=== PATIENT | female | born 1950 | race Caucasian/White ===

== ENCOUNTER 2022-04-02 21:48 | Outpatient (CLI) | payer MEDICARE, SELFPAY | END 2022-04-02 21:49 | disposition home or self-care (01) | PROVIDERS: Visit Provider Family Medicine | DX: S09.90XA Unspecified injury of head, initial encounter (principal); S79.911A Unspecified injury of right hip, initial encounter; F10.129 Alcohol abuse with intoxication, unspecified; W18.30XA Fall on same level, unspecified, initial encounter; Y92.009 Unspecified place in unspecified non-institutional (private) residence as the place of occurrence of the external cause | CPT/HCPCS: A0425; A0427 ==

== ENCOUNTER 2022-04-02 22:15 | Emergency (ER) | payer MEDICARE, SELFPAY ==
[2022-04-02] VITALS (7 sets, daily range): BP systolic 166–194; BP diastolic 89–159; PULSE 81–90; RESP 18; TEMP 36.4; O2SAT 92–96
--- NOTE | 2022-04-02 22:19 | CRLHL7_ITS ---
For Patients: As a result of the Century Cures Act, medical imaging exams and procedure reports are released immediately into your electronic medical record. You may view this report before your referring provider. If you have questions, please contact your health care provider. INDICATION: Trauma, fall. TECHNIQUE: CT cervical spine without contrast. COMPARISON: None. FINDINGS: Vertebrae: Mild reversal of the normal cervical lordosis. There are no fractures or suspicious bony lesions. Discs and facet joints: There are diffuse degenerative changes in the disc spaces and facet joints. Extraspinal findings: Paraspinous soft tissues are unremarkable. Emphysema and biapical scarring. IMPRESSION: 1. No sign of acute injury. 2. Multilevel degenerative spondylosis. Please note that all CT scans at this facility use dose modulation, iterative reconstruction, and/or weight-based dosing when appropriate to reduce radiation dose to as low as reasonably achievable. Dictated by Howie Allison MD @ 04/02/2022 11:47:15 PM (Electronically Signed)
--- NOTE | 2022-04-02 22:19 | CRLHL7_ITS ---
For Patients: As a result of the Cures Act, medical imaging exams and procedure reports are released immediately into your electronic medical record. You may view this report before your referring provider. If you have questions, please contact your health care provider. INDICATION: Facial injury. TECHNIQUE: CT maxillofacial without contrast. COMPARISON: None. FINDINGS: Facial bones: No fractures or bone lesions. Specifically the nasal bones, temporomandibular joints, maxilla and mandible appear intact. Left TMJ arthrosis. Edentulous. Orbits and globes: Unremarkable. Globes are intact. No sign of intraorbital hemorrhage or emphysema. Sinuses: No acute or significant findings. Soft tissues: Unremarkable. IMPRESSION: No sign of acute injury. Please note that all CT scans at this facility use dose modulation, iterative reconstruction, and/or weight-based dosing when appropriate to reduce radiation dose to as low as reasonably achievable. Dictated by Howie Allison MD @ 04/02/2022 11:43:31 PM (Electronically Signed)
--- NOTE | 2022-04-02 22:19 | CRLHL7_ITS ---
For Patients: As a result of the Century Cures Act, medical imaging exams and procedure reports are released immediately into your electronic medical record. You may view this report before your referring provider. If you have questions, please contact your health care provider. Indication: Trauma, fall. Technique: Pelvis and right hip 3 views. Comparison: 06/15/2017. Findings: Bones: Nondisplaced right acetabular fracture. Suspect the fracture plane extends to the iliac bone. Joint spaces: Mild hip degenerative changes. Mild lower lumbar spine degenerative changes. Soft tissues: Right hip soft tissue swelling. Impression: Nondisplaced right acetabular fracture. Dictated by Howie Allison MD @ 04/02/2022 11:50:14 PM (Electronically Signed)
--- NOTE | 2022-04-02 22:19 | CRLHL7_ITS ---
For Patients: As a result of the Century Cures Act, medical imaging exams and procedure reports are released immediately into your electronic medical record. You may view this report before your referring provider. If you have questions, please contact your health care provider. INDICATION: Trauma, fall. TECHNIQUE: Head CT without contrast. COMPARISON: None. FINDINGS: CSF spaces: Within normal limits for age. Brain parenchyma: Mild generalized volume loss. Patchy white matter low attenuation changes, nonspecific but likely reflecting mild chronic small vessel ischemic disease. Small volume of subarachnoid hemorrhage in the right choroidal fissure. No mass effect or midline shift. Skull base and calvarium: The visualized paranasal sinuses and mastoid air cells demonstrate no acute or significant findings. The visualized orbits are grossly unremarkable. No skull fractures. Right frontal and left anterior scalp hematomas. IMPRESSION: 1. Small volume of subarachnoid hemorrhage in the right choroidal fissure. 2. Right frontal and left anterior scalp hematomas. No acute calvarial fracture. Findings were discussed with Dr. Cerda by Dr. Allison on 04/02/2022 at 11:38 p.m. Please note that all CT scans at this facility use dose modulation, iterative reconstruction, and/or weight-based dosing when appropriate to reduce radiation dose to as low as reasonably achievable. Dictated by Howie Allison MD @ 04/02/2022 11:40:15 PM (Electronically Signed)
--- NOTE | 2022-04-02 22:22 | ED.GENADULT ---
HPI - General Adult General Time Seen by Provider: :22 Date Seen: 04/02/22 Chief complaint: Fall/Minor Trauma Stated complaint: fell Time Seen by Provider: 04/02/22 22:19 Source: patient and EMS Mode of arrival: EMS Limitations: no limitations History of Present Illness HPI narrative: 71-year-old female who comes in by EMS after a fall. Patient is unable to tell me exactly what happened. She complains only of some right hip pain. Denies any recent illness. History of alcohol use. Denies chest pain, palpitation, nausea, vomiting, diarrhea, abdominal pain, breathing difficulty, neck pain, numbness or tingling in the arms or legs. Related Data Home Medications Medication Instructions Recorded Confirmed aspirin .ROUTE 04/02/22 prednisone .ROUTE 04/02/22 Allergies Allergy/AdvReac Type Severity Reaction Status Date / Time No Known Drug Allergies Allergy Verified 04/03/22 00:02 Review of Systems Status of ROS: Reports: 10 or more systems reviewed and unremarkable except as noted in History and below [facility] Medical History (Updated 04/03/22 @ 00:08 by Adarsh Cerda MD) Anxiety Rheumatoid arthritis Social History Smoking Status: Current some day smoker What tobacco products do you use: cigarettes Smoking packs per day: 0.1 Smoking cigarettes per day: 2.0 How often do you have a drink containing alcohol: 2-4 times a month How often do you have six or more drinks on one occasion: Less than monthly AUDIT-C Alcohol total score: 3 Non-prescribed substance use: denies use Exam Narrative: Exam Narrative: Airway: Intact, no dental injury Breathing: Lungs are clear, nonlabored Circulation: Heart regular, dorsalis pedis pulses intact Neurologic: Moves all extremities, GCS 15 General: Well-developed and well-nourished, no acute distress Head: Left frontal and right temporal hematoma, 1 cm abrasion of the left temporal hematoma without active bleeding. Eyes: Pupils are equal reactive, extraocular motions intact, conjunctiva clear. 1 cm superficial laceration on the inferior eyelid, not through and through ENT: External nose and ears are normal, posterior pharynx without erythema or exudate Neck: Cervical collar in place No midline cervical tenderness, full spontaneous range of motion the neck, trachea midline, no adenopathy Heart: Regular rate and rhythm no murmurs or thrills Lungs: Clear to auscultation bilaterally without wheezes or crackles Abdomen: Soft, nontender, nondistended with active bowel sounds Musculoskeletal: No midline lumbar or thoracic tenderness. Right hip tender and pain with straight leg raise. Neurologic: Awake, alert, and oriented x3, no gross focal neurologic deficits, cranial nerves intact as tested Psych: Mood and affect are appropriate Skin: No rashes Const: Vital Signs, click to edit/add: Vital Signs - 24 hr 04/02/22 22:26 04/02/22 22:23 04/02/22 23:02 Temperature 97.5 F L Pulse Rate 81 Pulse Rate [Left P ulse Oximeter] 90 Respiratory Rate 18 Blood Pressure 194/159 H 166/99 H Blood Pressure [Ri ght Upper Arm] 181/101 H Pulse Oximetry 96 94 Oxygen Delivery Me thod Room Air 04/02/22 23:11 04/02/22 23:21 04/02/22 23:31 Temperature Pulse Rate 81 87 84 Pulse Rate [Left P ulse Oximeter] Respiratory Rate Blood Pressure 168/92 H 168/91 H 167/89 H Blood Pressure [Ri ght Upper Arm] Pulse Oximetry 92 93 94 Oxygen Delivery Me thod 04/02/22 23:41 Temperature Pulse Rate 83 Pulse Rate [Left P ulse Oximeter] Respiratory Rate Blood Pressure 168/89 H Blood Pressure [Ri ght Upper Arm] Pulse Oximetry 96 Oxygen Delivery Me thod Course Course Hospital Course: Trauma alert prior to arrival EMS. Patient seen immediately on arrival. Patient with fall and head injury. Differential diagnosis includes but not limited to syncope, intracranial hemorrhage, skull fracture, hip fracture. She hit with fall and report of consciousness. Her only complaint is right hip pain. She does have some scalp hematomas, head CT and facial CT ordered along with cervical spine CT due to alcohol intoxication although no midline tenderness. Does complain of some right hip pain and x-rays ordered. Labs ordered as well. Reevaluation(s) Reevaluation #1: CT scan of the head personally reviewed interpreted fl shows possible small intraparenchymal bleed right. X-ray of the right hip demonstrates acetabular fracture. CT scan of the abdomen and pelvis is ordered, also mild hyponatremia, normal saline initiated although this likely is chronic. Time: 23:30 Reevaluation #2: Patient accepted in transfer to [place], Dr. Alcocer accepting. Updated patient. She remains vitally stable. Time: 00:03 Consultations Consultation #1: Discussed with radiology- small subarachonoid on right, Time: 23:37 Vital Signs Vital signs: Initial Vital Signs Blood Pressure 194/159 H 04/02/22 22:23 Blood Pressure Mean 170 04/02/22 22:23 Vital Signs Blood Pressure 194/159 H 04/02/22 22:23 Temperature 97.5 F L 04/02/22 22:26 Pulse Rate 83 04/02/22 23:41 Respiratory Rate 18 04/02/22 22:26 Blood Pressure 168/89 H 04/02/22 23:41 Pulse Oximetry 96 04/02/22 23:41 Oxygen Delivery Method 04/02/22 22:26 Medical Decision Making Medical Records Medical records reviewed: Yes I reviewed the patient's medical records Lab Data Lab results reviewed: Yes I reviewed the patient's lab results Labs: Lab Results 04/02/22 04/02/22 Range/Units 21:20 21:20 WBC 7.23 (4.50-11.00) K/uL RBC 4.23 (4.00-5.20) m/uL Hgb 13.0 (12.0-16.0) gm/dL Hct 38.3 (33.0-51.0) % MCV 91 (80-100) fL MCH 31 (26-34) pg MCHC 34 (32-36) gm/dL Plt Count 331 (140-440) K/uL Neut % (Auto) 30.6 L (42.0-72.0) % Lymph % (Auto) 56.2 H (20-44) % [place] % (Auto) 10.0 (0.0-11.0) % Eos % (Auto) 1.9 (0.0-7.0) % Baso % (Auto) 0.6 (0.0-3.0) % Neut # (Auto) 2.20 (1.7-7.0) K/uL Lymph # (Auto) 4.10 H (0.90-2.90) K/uL [place] # (Auto) 0.70 (0.00-0.90) K/UL Eos # (Auto) 0.10 (0.00-0.50) K/uL Baso # (Auto) 0.00 (0.00-0.30) K/uL Abs Immat Gran (auto) 0.10 (0.00-0.30) K/uL Imm/Tot Granulo (auto) 0.7 % Sodium 125 L (135-149) mmol/L Potassium 3.5 L (3.6-5.1) mmol/L Chloride 90 L (96-114) mmol/L Carbon Dioxide 22 (20-32) mmol/L BUN 8 (7-30) mg/dL Creatinine 0.5 (0.5-1.5) mg/dL Estimated GFR 99 ml/min Glucose 119 H (60-115) mg/dL Calcium 8.2 L (8.4-10.6) mg/dL Troponin I < 0.01 L (0.01-0.04) ng/mL Ethyl Alcohol 0.23 H (0.01-0.03) % ECG Data Attestation: I personally reviewed and interpreted this ECG as follows: Prior ECG tracings: not available for review Interpretation: Performed at 10:57 p.m. demonstrates normal sinus rhythm rate 79, no acute ST elevations or depressions, normal axis, normal intervals Critical Care Time Critical Care Time Critical Care Time: Yes Attestation: The patient required my highest level preparedness to intervene emergently and I personally spent this critical care time directly and personally managing the patient. This critical care time included: Obtaining a history; Examining the patient; Pulse oximetry; Ordering and reviewing of studies; Arranging urgent treatment with development of a management plan; Evaluation of patients response to treatment; Frequent reassessment discussions with other providers. This critical care time was performed to assess and manage the high probability of imminent life-threatening deterioration that could result in multiorgan failure. It was exclusive of separate billable procedures and treating other patients and teaching time. Total Critical Care Time in Minutes: 110 Discharge Plan Discharge Clinical Impression: Abrasion of forehead, Alcohol dependence with acute alcoholic intoxication, Subarachnoid hemorrhage, Hyponatremia, Acetabular fracture, Hematoma of scalp Patient Disposition: [facility] Prescriptions: No Action aspirin .ROUTE prednisone .ROUTE Stand Alone Forms: [facility] Inst[facility]
[2022-04-02 22:48] LABS: Eosinophils Percent Auto 1.9 % (0.0-7.0); Hematocrit 38.3 % (33.0-51.0); Lymphocytes Percent Auto 56.2 % (20-44); Mean Corpuscular HGB Conc 34 gm/dL (32-36); Mean Corpuscular Hemoglobin 31 pg (26-34); Mean Corpuscular Volume 91 fL (80-100); Neutrophils Percent Auto 30.6 % (42.0-72.0); Platelet Count* 331 K/uL (140-440); Red Blood Count 4.23 m/uL (4.00-5.20); White Blood Count* 7.23 K/uL (4.50-11.00)
[2022-04-02 22:49] LABS: Basophils Percent Auto 0.6 % (0.0-3.0); Immature Granulocytes Pct Auto 0.7 %; Slide Review Reflex No
[2022-04-02 22:56] LABS: Sodium* 125 mmol/L (135-149)
[2022-04-02 22:57] LABS: Blood Urea Nitrogen* 8 mg/dL (7-30); Calcium* 8.2 mg/dL (8.4-10.6); Carbon Dioxide* 22 mmol/L (20-32); Chloride* 90 mmol/L (96-114); Creatinine* 0.5 mg/dL (0.5-1.5); Estimated Glomerular Filt Rate 99 ml/min; Ethanol* 0.23 % (0.01-0.03); Glucose* 119 mg/dL (60-115); Potassium* 3.5 mmol/L (3.6-5.1)
[2022-04-02 23:04] LABS: Troponin I* < 0.01 ng/mL (0.01-0.04)
--- NOTE | 2022-04-02 23:33 | CRLHL7_ITS ---
For Patients: As a result of the Century Cures Act, medical imaging exams and procedure reports are released immediately into your electronic medical record. You may view this report before your referring provider. If you have questions, please contact your health care provider. INDICATION: Trauma. TECHNIQUE: CT chest, abdomen and pelvis acquired with 54 cc Isovue 370 IV contrast. COMPARISON: Right hip radiographs 04/02/2022. FINDINGS: CHEST: Lungs and pleura: Severe emphysema. Minimal dependent atelectasis. No suspicious infiltrates. No pleural effusion or pneumothorax. Cardiovascular structures: Heart size is normal. Thoracic aorta and main pulmonary artery are normal in caliber. Coronary artery calcifications. Mediastinum and josefina: No mass or adenopathy. Chest wall and axilla: No mass or adenopathy. Bones: Displaced lateral right 5th through 7th rib fractures. ABDOMEN AND PELVIS: Liver: Small right inferior hepatic lobe cyst. No sign of acute injury. Gallbladder and bile ducts: Unremarkable. Pancreas: Unremarkable. Spleen: Unremarkable. No sign of acute injury. Adrenal glands: Unremarkable. Kidneys: Left renal cyst. Subcentimeter hypodense foci are too small to accurately characterize. No hydronephrosis. GI tract: Unremarkable. Vascular structures: Scattered atherosclerotic calcifications. Lymph nodes: Unremarkable. Miscellaneous: Unremarkable. No free air or significant free fluid. Pelvic Organs: Unremarkable. Bones: Comminuted right both column acetabular fracture with comminution of the acetabulum and right iliac bone and displaced fracture of the inferior pubic ramus. Nondisplaced left pubic symphyseal body fracture. Multilevel degenerative changes of the spine. IMPRESSION: 1. Comminuted right both column acetabular fracture. 2. Nondisplaced left pubic symphyseal body fracture. 3. Displaced right 5th through 7th rib fractures. 4. Severe emphysema. Please note that all CT scans at this facility use dose modulation, iterative reconstruction, and/or weight-based dosing when appropriate to reduce radiation dose to as low as reasonably achievable. Dictated by Howie Allison MD @ 04/03/2022 1:01:49 AM (Electronically Signed)
[2022-04-03] MEDS: 0.9 % SODIUM CHLORIDE 1000 ml 1,000 ML IV
[2022-04-03 00:02] VITALS: BP 161/85; PULSE 89; O2SAT 95
[2022-04-03 00:11] VITALS: BP 158/85; PULSE 82; O2SAT 97
[2022-04-03 00:21] VITALS: BP 151/89
--- NOTE | 2022-04-03 01:24 | ED.NURSE ---
called family numbers multiple times, no answer.
--- NOTE | 2022-04-03 05:38 | ED.NURSE ---
per pt request to update family, Family member Luis Reis.. called back, update on patient transfer and additional questions answered. phone number provided for pt family member to reach [facility] ED.
== END 2022-04-03 00:30 | disposition home or self-care (01) ==
PROVIDERS: Emergency Provider Family Medicine
DX: I60.9 Nontraumatic subarachnoid hemorrhage, unspecified (principal); S00.01XA Abrasion of scalp, initial encounter; S32.409A Unspecified fracture of unspecified acetabulum, initial encounter for closed fracture; F10.229 Alcohol dependence with intoxication, unspecified
CPT/HCPCS: 36415; 70450; 70486; 71260; 72125; 73502; 74177; 80048; 81001; 82077; 84484; 85025; 93005; 94761; 99285; 99291; 99292; G0390; J7030; Q9967

== ENCOUNTER 2022-04-03 00:23 | Outpatient (CLI) | payer MEDICARE, SELFPAY | END 2022-04-03 00:24 | disposition home or self-care (01) | PROVIDERS: Visit Provider Family Medicine | DX: S06.30AS Unspecified focal traumatic brain injury with loss of consciousness status unknown, sequela (principal); E87.1 Hypo-osmolality and hyponatremia; F10.229 Alcohol dependence with intoxication, unspecified | CPT/HCPCS: A0425; A0428 ==